=== PATIENT | male | born 1960 | race Caucasian/White ===

== ENCOUNTER 2021-03-06 18:44 | Inpatient (IN) | payer OTHER ==
[2021-03-06 21:13] VITALS: BMI 30.3
[2021-03-06] MEDS ORDERED: MORPHINE 4 MG/ML SYR IV PRN (21:58)
[2021-03-06] MEDS ORDERED: ONDANSETRON 4 MG/2 ML VIAL IV PRN (21:58)
[2021-03-06] MEDS ORDERED: DIPHENHYDRAMINE 50 MG/ML VIAL IV PRN (22:10)
[2021-03-06] MEDS: Ringers Lactate 1,000 ML IV SCH (22:15)
[2021-03-07] MEDS: Ringers Lactate 1,000 ML IV SCH ×2 (08:15→19:00)
[2021-03-07] MEDS ORDERED: Ringers Lactate 1,000 ML IV ONE (12:46)
[2021-03-07] MEDS ORDERED: propofoL 200 MG/20 ML VIAL IV ONE (12:50)
[2021-03-07] MEDS ORDERED: FENTANYL CITR 100 MCG/2 ML ONE (12:50)
[2021-03-07] MEDS ORDERED: ROCURONIUM 50 MG/5 ML VIAL IV ONE (12:51)
[2021-03-07] MEDS ORDERED: dexAMETHasone 10 MG/ML VIAL ONE (12:51)
[2021-03-07] MEDS ORDERED: LIDOCAINE 1% MPF 30 ML VIAL ONE (12:51)
[2021-03-07] MEDS ORDERED: MIDAZOLAM HCL 2 MG/2 ML INJ ONE (12:51)
[2021-03-07] MEDS ORDERED: ONDANSETRON 4 MG/2 ML VIAL ONE ×2 (12:51→15:24)
[2021-03-07] MEDS ORDERED: KETOROLAC 30 MG/ML INJ ONE (12:51)
--- NOTE | 2021-03-07 13:10 | P.HP ---
Date of Service: 03/07/21 PC: This 61-year-old male was transferred from a free standing ER for acute on chronic cholecystitis with cholelithiasis. HPC: Patient was at home, has very severe attack. Pain was located in the right upper quadrant, radiating to his back. Could not get relief. Went to a free standing ER. He was given some IV pain medicine. A diagnosis of cholecystitis with cholelithiasis was made. He is transferred to our facility for surgical evaluation. PMH: Negative PSHx: Negative SOC: Codeine makes him itch SYS REVIEW: No cough, wheeze, shortness of breath. No chest pain or palpitations. Denies any urinary complaints O/E awake alert vital signs are stable, comfortable at the moment HEENT: Nonicteric Chest: Equal vital ABD: Mild right upper quadrant discomfort LOCO: Intact DATA: Has documented cholecystitis with cholelithiasis IMPRESSION: Cholelithiasis with biliary colic PLAN: I will take him to the operating room for laparoscopic cholecystectomy, possible open procedure. We will also do a cholangiogram. The risks of this procedure have been discussed. The possibility of bleeding, infection, injury to bile ducts blood vessels intestines has been described. The possible need for an open and/or further surgeries and procedures was discussed. He understands and wants us to proceed.
[2021-03-07] MEDS ORDERED: CEFOXITIN/SWI 1gm 1 GM/10 ML SYR ONE (13:14)
[2021-03-07] MEDS ORDERED: GLYCOPYRROLATE 0.2 MG/ML SYR ONE (14:32)
[2021-03-07] MEDS ORDERED: NEOSTIGMINE 1 MG/ML -5 ML ONE (14:39)
--- NOTE | 2021-03-07 14:41 | P.OP ---
Preoperative diagnosis: Acute on chronic cholecystitis with cholelithiasis Postoperative diagnosis: The same Primary procedure: Laparoscopic cholecystectomy Secondary procedure: Cholangiogram Other procedure(s): Dianne block Anesthesia: General Estimated blood loss: Less than 10 cc Specimen: Gallbladder and contents Findings: Swollen edematous gallbladder Operative Technique: The patient brought to the operating room and placed supine on the table. After the induction of adequate general endotracheal anesthesia, the area of the abd omen was prepped with a DuraPrep solution, and he was draped in usual aseptic manner. A subumbilical incision was made. This was brought down through the skin and subcutaneous tissue. The Visiport was now used to enter the peritoneal cavity and created pneumoperitoneum to approximately 12 mm of mercury. Under direct vision a 5 mm trocar was placed in the upper midline, and 2 other 5 mm trocars i n the right upper quadrant. 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 We could visualize right upper quadrant. We could see a markedly congested and inflamed gallbladder. There was omental adhesions down to the body and towards Martin's pouch. These adhesions were taken down using blunt sharp dissection. We were able to identify Martin's pouch. Dissection this area allowed us to obtain the critical view. The cystic duct and artery having been isolated, the artery was clipped and divided in the usual manner. A clip was placed between the gallbladder and the cystic duct. An opening was made into the cystic duct through which we obtained our cholangiogram. Cholangiogram demonstrated good flow contrast into the duodenum. No filling defects were noted. The catheter was now removed. Clips were placed on the distal portion of the cystic duct which was fully transected. The gallbladder was now dissected free from the liver bed, placed into an Endo- Catch, and brought out through the umbilical trocar site. Attention was turned back to the right upper quadrant. The area with saline solution. Adequate hemostasis was ensured in the liver bed. The irrigating fluid was aspirated from the peritoneal cavity. Using a 5 mm camera in the upper midline trocar we were able close the umbilical trocar site. The patient had a small hernia this area. We dressed it by placing 2 sutures of PDS to approximate the facile defect and approximate the umbilical hernia. This is not a definitive repair we will discuss it with the patient and later date. At this point a Dianne block was performed. 0.25% Marcaine was injected. At this point the trocars were withdrawn, the pneumoperitoneum collapse, and doreen were applied to the skin. He was stable when sent to the recovery room. Needle sponge instrument count were reported as correct. No drains were placed. Transferred to: Recovery Room Condition: Good
[2021-03-07] MEDS ORDERED: NA CHLORIDE 0.9% 1,000 ML ONE (15:03)
[2021-03-07] MEDS: HYDROMORPHONE HCL 1 MG/ML INJ ONE ×2 (15:10→15:15)
--- NOTE | 2021-03-07 15:10 | RAD REPORT ---
EXAM DESCRIPTION: RAD - Cholangiogram Oper-Xray Or - 03/07/2021 3:01 pm CLINICAL HISTORY: LAP ELIZABETH Abdominal pain COMPARISON: No comparisons FINDINGS: Contrast injection was performed by the operating surgeon. Common bile duct is normal lizz humberto. No finding is seen to suggest retained stone. Total fluoro time: 0.3 minutes
[2021-03-07 15:20] VITALS: O2SAT 95
[2021-03-07] MEDS ORDERED: ACETAMINOPHEN 325 MG TABLET PO PRN (20:07)
[2021-03-07] MEDS ORDERED: Ringers Lactate 1,000 ML IV SCH (21:00)
[2021-03-08 08:50] VITALS: BP 124/63; TEMP 97.4
== END 2021-03-08 12:57 | disposition home or self-care (01) | DRG 419 ==
LOC: 2ND 20:24
PROVIDERS: ADMIT Surgery; ATTEND Surgery
PROC: BF522Z0 Other Imaging of Gallbladder using Fluorescing Agent, Intraoperative (ICD-10-PCS; 2021-03-07)
PROC: 0FT44ZZ Resection of Gallbladder, Percutaneous Endoscopic Approach (ICD-10-PCS; principal; 2021-03-07 13:00)
DX: K80.46 Calculus of bile duct with acute and chronic cholecystitis without obstruction (principal); Z88.5 Allergy status to narcotic agent
CPT/HCPCS: 74300; 88304; 94010; J1100; J1170; J2250; J2405; J2704; J2710; J3010; J7030; J7120